=== PATIENT | female | born 1990 | race Caucasian/White ===

== ENCOUNTER 2024-05-27 04:36 | Inpatient (IN) | payer MEDICAID, OTHER ==
[2024-05-27 05:21] VITALS: BMI 35.3
[2024-05-27] MEDS ORDERED: Lidocaine 1% (PF) 30 ML VIAL SC PRN (07:36)
[2024-05-27] MEDS ORDERED: Tranexamic Acid 1,000 MG/10 ML VIAL IVP PRN (07:36)
[2024-05-27] MEDS ORDERED: Methylergonovine 0.2 MG/ML VIAL IM PRN (07:36)
[2024-05-27] MEDS ORDERED: Acetaminophen 500 MG TAB PO PRN (07:36)
[2024-05-27] MEDS ORDERED: Promethazine HCl 25 MG/ML VIAL IM PRN ×2 (07:36→16:55)
[2024-05-27] MEDS ORDERED: Diphenoxylate HCl/Atropine Tablet PO PRN (07:36)
[2024-05-27] MEDS ORDERED: fentaNYL 50 mcg/mL 1 mL Vial SLOW IVP PRN (07:36)
[2024-05-27] MEDS ORDERED: Ibuprofen 800 MG TAB PO PRN (07:36)
[2024-05-27] MEDS ORDERED: Carboprost 250 MCG/ML AMP IM PRN (07:36)
[2024-05-27] MEDS ORDERED: HYDROcodone/Acetaminophen 5/325 mg Tablet PO PRN ×2 (07:36→16:55)
[2024-05-27] MEDS ORDERED: hydrALAZINE 20 MG/ML VIAL SLOW IVP PRN ×2 (07:36→16:55)
[2024-05-27] MEDS ORDERED: Ondansetron PF 4 MG/2 ML Vial IVP PRN ×2 (07:36→16:55)
[2024-05-27 07:45] LABS: Hematocrit 36.7 % (34.9-44.5); Mean Corpuscular HGB CONC 32.7 g/dL (32.0-36.0); Mean Corpuscular Hemoglobin 26.7 pg (27.0-33.0); Mean Corpuscular Volume 81.7 fL (81.6-98.3); Mean Platelet Volume 12.3 fL (7.4-10.4); Platelet Count 215 10x3/uL (150-450); RBC Distribution Width 18.6 % (11.5-14.5); Red Blood Cell (RBC) Count 4.49 10x6/uL (3.90-5.03)
[2024-05-27] MEDS ORDERED: Lactated Ringer's 1,000 ML IV SCH (07:45)
[2024-05-27] MEDS ORDERED: Oxytocin 30 units/NS 500 ML 500 ML IV SCH ×2 (07:45)
[2024-05-27 08:16] LABS: Syphilis Antibody Nonreactive (Nonreactive); Syphilis Antibody Index 0.11 S/CO (<1.00 Non-Reactive)
[2024-05-27 08:32] LABS: Hep B Surf Ag - L&D Non-Reactive S/CO (NonReactive)
[2024-05-27] MEDS: Oxytocin 30 units/NS 500 ML 500 ML IV SCH (10:47)
[2024-05-27] MEDS: Misoprostol 200 MCG TAB PR PRN (15:07)
[2024-05-27] MEDS ORDERED: Lanolin Ointment 7 GM TUBE TOP PRN (16:55)
[2024-05-27] MEDS ORDERED: diphenhydrAMINE 25 MG CAP PO PRN (16:55)
[2024-05-27] MEDS ORDERED: Benzocaine-Menthol 82.5 ML CAN TOP PRN (16:55)
[2024-05-27] MEDS ORDERED: Milk Of Magnesia 30 ML UDCUP PO PRN (16:55)
[2024-05-27] MEDS ORDERED: Bisacodyl 10 MG SUPP PR PRN (16:55)
[2024-05-27] MEDS: Ferrous Sulfate 325 MG TAB PO SCH (18:28)
[2024-05-27] MEDS: Ibuprofen 800 MG TAB PO SCH (18:40)
[2024-05-28] MEDS: Docusate 100 MG CAP PO SCH (02:34)
[2024-05-28] MEDS: Prenatal Vitamin 1 TAB PO SCH (08:38)
[2024-05-28] MEDS: Boostrix 0.5 ML (Tdap) VIAL (>/=7 yrs of age) IM ONE (09:50)
[2024-05-28 12:08] VITALS: BP 109/68; TEMP 98.2
== END 2024-05-28 19:00 | disposition home or self-care (01) | DRG 807 ==
LOC: CSHLD 04:36 → CSHPED 18:10
PROVIDERS: ADMIT Family Medicine; ATTEND Family Medicine
PROC: 10E0XZZ Delivery of Products of Conception, External Approach (ICD-10-PCS; principal; 2024-05-27)
PROC: 10907ZC Drainage of Amniotic Fluid, Therapeutic from Products of Conception, Via Natural or Artificial Opening (ICD-10-PCS; 2024-05-27)
DX: O69.81X0 Labor and delivery complicated by cord around neck, without compression, not applicable or unspecified (principal); Z37.0 Single live birth; Z3A.39 39 weeks gestation of pregnancy
CPT/HCPCS: 36415; 51702; 85027; 86780; 86850; 86900; 86901; 87340; 90715; J2590